=== PATIENT | female | born 1950 | race Caucasian/White ===

== ENCOUNTER → 2024-05-07 14:34 | Outpatient (REF) | payer OTHER, SELFPAY | LOC: WDC 14:34 | PROVIDERS: ATTENDING PHYSICIAN Physician Assistant Medical | DX: M81.0 Age-related osteoporosis without current pathological fracture (principal); Z12.31 Encounter for screening mammogram for malignant neoplasm of breast | CPT/HCPCS: 77063; 77067; 77080 ==

== ENCOUNTER → 2025-05-11 08:17 | Outpatient (REF) | payer OTHER, SELFPAY | LOC: WDC 08:17 | PROVIDERS: ATTENDING PHYSICIAN Obstetrics & Gynecology Gynecology; FAMILY PHYSICIAN Physician Assistant Medical | DX: Z12.31 Encounter for screening mammogram for malignant neoplasm of breast (principal) | CPT/HCPCS: 77063; 77067 ==

== ENCOUNTER → 2025-09-09 11:52 | Outpatient (REF) | payer OTHER, SELFPAY ==
[2025-09-09 12:18] LABS: Hematocrit 43.4 % (37.0-47.0); Hemoglobin 14.1 g/dL (12.0-16.0); Mean Corp Hgb Conc. 32.5 g/dL (33.0-37.0); Mean Corpuscular Volume 95.2 fL (81.0-99.0); Nucleated Red Blood Cells % 0 %; Platelet Count 260 10^3/uL (130-400); Red Cell Dist. Width 13.6 % (11.5-14.5)
[2025-09-09 12:51] LABS: ALT (SGPT) 26 U/L (0-35); AST (SGOT) 55 U/L (14-36); Albumin 4.5 g/dl (3.5-5.0); Alkaline Phosphatase 76 U/L (38-126); Blood Urea Nitrogen 21 mg/dl (7-17); Calcium 9.8 mg/dl (8.4-10.2); Carbon Dioxide 28 mmol/L (22-30); Chloride 103 mmol/L (98-107); Glucose 73 mg/dl (70-99); HDL Cholesterol 78 mg/dl; LDL Cholesterol, Calculated 96 mg/dl; Potassium 4.6 mmol/L (3.5-5.1); Sodium 135 mmol/L (135-145); Total Protein 7.8 g/dl (6.3-8.2); Very Low Density Lipoprotein 15 mg/dl (0-30); eGFR 59.12
[2025-09-09 13:06] LABS: Vitamin D, 25-OH*** 55.6 ng/mL (30-80)
[2025-09-09 13:20] LABS: TSH 4.93 uIU/ml (0.47-4.68)
== END ==
LOC: OLABPV 11:52
PROVIDERS: ATTENDING PHYSICIAN Physician Assistant Medical
DX: Z00.01 Encounter for general adult medical examination with abnormal findings (principal); M81.0 Age-related osteoporosis without current pathological fracture; N18.31 Chronic kidney disease, stage 3a; R74.8 Abnormal levels of other serum enzymes; R79.89 Other specified abnormal findings of blood chemistry
CPT/HCPCS: 36415; 80053; 80061; 82306; 84443; 85025